=== PATIENT | female | born 1975 | race Caucasian/White ===

== ENCOUNTER 2018-06-16 19:41 | Emergency (ER) | payer OTHER ==
[2018-06-16 19:54] VITALS: BP 105/55
[2018-06-16 20:07] LABS: BILIRUBIN,URINE NEGATIVE (NEGATIVE); GLUCOSE, URINE (UA) NEGATIVE (NEGATIVE); KETONES,URINE (UA) NEGATIVE (NEGATIVE); LEUKOCYTE ESTERASE, URINE MODERATE (NEGATIVE); NITRITE,URINE NEGATIVE (NEGATIVE); OCCULT BLOOD,URINE LARGE (NEGATIVE); PH,URINE 5.5 PH (5.0-7.5); PROTEIN,URINE 100 mg/dL (NEGATIVE); UROBILINOGEN,URINE 0.2 (NORMAL) E.U./dL (NORMAL)
[2018-06-16 20:09] LABS: CLARITY,URINE CLOUDY (CLEAR)
[2018-06-16 20:22] LABS: BACTERIA,URINE Many /HPF (None Seen); RBC,URINE TNTC /HPF (0-5); SQUAMOUS EPITHELIAL CELL,UR FEW Squamous (<= Few)
[2018-06-16] MEDS ORDERED: PHENAZOPYRIDINE 100 MG TABLET PO STA (20:28)
[2018-06-16] MEDS ORDERED: cephALEXin 250 MG CAPSULE PO STA (20:28)
--- NOTE | 2018-06-16 20:30 | ED Physician Documentation ---
PD HPI FEMALE - Stated complaint Stated Complaint: FEM - Chief complaint Chief Complaint: UTI - History obtained from History obtained from: Patient - History of Present Illness Timing - onset: How many days ago (2) Timing - duration: Days (2) Timing - details: Gradual onset Pain level max: 3 Pain level max: 3 Severity Comments: mild Associated symptoms: Dysuria, Urinary frequency Contributing factors: No: , control, Oral contraceptive, Depo Review of Systems Ten Systems: 10 systems reviewed and negative Constitutional: reports: Reviewed and negative Eyes: reports: Reviewed and negative Ears: reports: Reviewed and negative Nose: reports: Reviewed and negative Throat: reports: Reviewed and negative Cardiac: reports: Reviewed and negative Respiratory: reports: Reviewed and negative GI: reports: Reviewed and negative : reports: Reviewed and negative Skin: reports: Reviewed and negative Musculoskeletal: reports: Reviewed and negative Neurologic: reports: Reviewed and negative Psychiatric: reports: Reviewed and negative Endocrine: reports: Reviewed and negative Immunocompromised: reports: Reviewed and negative PD PAST MEDICAL HISTORY - Past Medical History Past Medical History: Yes Cardiovascular: None Respiratory: None Neuro: None Endocrine/Autoimmune: Type 2 diabetes CYBER SECURITY ENGINEER: Fibroids, Other : Other HEENT: None Psych: None Musculoskeletal: None Derm: None Other Past Medical History: polycystic ovarian syndrome - Past Surgical History Past Surgical History: No Other past surgical history: Reviewed and not pertinent - Present Medications Home Medications: Ambulatory Orders Medication Instructions Recorded Confirmed Cephalexin [Keflex] 500 mg PO BID #20 capsule 06/16/18 Lisinopril 0 mg PO DAILY 06/16/18 06/16/18 Phenazopyridine HCl [Pyridium] 200 mg PO TID PRN #6 tablet 06/16/18 Sitagliptin Phos/Metformin HCl 1 tab PO BID 06/16/18 06/16/18 [Janumet 50-1,000 mg Tablet] buPROPion [Wellbutrin Xl] 150 mg PO BID 06/16/18 06/16/18 clonazePAM [KlonoPIN] 1 tab PO BID 06/16/18 06/16/18 - Allergies Allergies/Adverse Reactions: Allergies Allergy/AdvReac Type Severity Reaction Status Date / Time No Known Drug Allergies Allergy Verified 06/16/18 19:48 - Living Situation Living Situation: reports: Alone Living Arrangement: reports: At home - Social History Does the pt smoke?: No Smoking Status: Former smoker Does the pt drink ETOH?: Yes ETOH Use: Liquor Does the pt have substance abuse?: No - Family History Family history: reports: Other (Reviewed and not pertinent) - Immunizations Immunizations are current?: Yes - POLST Patient has POLST: No PD ED PE NORMAL - Vitals Vital signs reviewed: Yes - General General: Alert and oriented X 3, No acute distress - HEENT HEENT: PERRL - Neck Neck: Supple, no meningeal sign - Cardiac Cardiac: RRR, No murmur - Respiratory Respiratory: Clear bilaterally - Abdomen Abdomen: Normal bowel sounds, Soft, Non tender, Non distended - Derm Derm: Warm and dry - Extremities Extremities: No deformity - Neuro Neuro: Alert and oriented X 3 - Psych Psych: Normal mood, Normal affect Results - Vitals Vitals: Vital Signs - 24 hr 06/16/18 19:43 Temperature 36.7 C Heart Rate 94 Respiratory 16 Rate Blood Pressure 105/55 L O2 Saturation 99 Oxygen O2 Source Room air - Labs Labs: Laboratory Tests 06/16/18 20:00 Urine Color YELLOW Urine Clarity CLOUDY Urine pH 5.5 Ur Specific [place] 1.020 Urine Protein 100 H Urine Glucose (UA) NEGATIVE Urine Ketones NEGATIVE Urine Occult Blood LARGE H Urine Nitrite NEGATIVE Urine Bilirubin NEGATIVE Urine Urobilinogen 0.2 (NORMAL) Ur Leukocyte Esterase MODERATE H Urine RBC TNTC H Urine WBC >25 H Ur Squamous Epith Cells FEW Squamous Urine Bacteria Many H Ur Microscopic Review INDICATED Urine Culture Comments INDICATED PD MEDICAL DECISION MAKING - ED course Complexity details: reviewed results, re-evaluated patient, considered differential, d/w patient, d/w family ED course: 42-year-old female with dysuria. Urinalysis consistent with infection. Patient treated with Keflex and discharged on same. Given Pyridium for symptomatic treatment. Primary care follow-up. Departure - Departure Disposition: 01 Home, Self Care Clinical Impression: Cystitis Urinary tract infection Qualifiers: Urinary tract infection type: acute cystitis Hematuria presence: with hematuria Qualified Code(s): N30.01 - Acute cystitis with hematuria Condition: Good Instructions: ED UTI Cystitis Female Follow-Up: Keatno Camilo ARNP [Primary Care Provider] - Prescriptions: Cephalexin [Keflex] 500 mg PO BID #20 capsule Phenazopyridine HCl [Pyridium] 200 mg PO TID PRN #6 tablet PRN Reason: dysuria Comments: Follow-up with PCP to ensure resolution of symptoms. Return with worsening symptoms. Take antibiotics as prescribed.
== END 2018-06-16 20:37 | disposition home or self-care (01) ==
LOC: ED 19:41
DX: N30.01 Acute cystitis with hematuria (principal); E11.9 Type 2 diabetes mellitus without complications
CPT/HCPCS: 81001; 87086; 87181; 99283; A9270; 81003

== ENCOUNTER 2018-07-18 15:52 | Emergency (ER) | payer OTHER ==
--- NOTE | 2018-07-18 17:25 | ED Physician Documentation ---
History of Present Illness - Stated complaint Stated Complaint: ANXIETY - Chief complaint Chief Complaint: MHE - History obtained from History obtained from: Patient - History of Present Illness Timing: How many days ago (several) Pain level max: 0 Pain level now: 0 - Additonal information Additional information: 42-year-old female presents the emergency department with a complaint of fingers turning blue over the past few days. No numbness or tingling. Nothing makes it better or worse. She also states she is having increased anxiety. Is currently on clonazepam twice a day. Is not having any shortness of breath or chest pain. Review of Systems Constitutional: denies: Fever, Chills Respiratory: denies: Cough GI: denies: Nausea, Vomiting, Diarrhea Skin: denies: Rash Musculoskeletal: denies: Neck pain, Back pain Neurologic: denies: Headache Psychiatric: reports: Anxiety. denies: Depressed, Suicidal, Homicidal, Hallucinations, Delusions PD PAST MEDICAL HISTORY - Past Medical History Cardiovascular: None Respiratory: None Neuro: None Endocrine/Autoimmune: Type 2 diabetes LYRIC WRITER: Fibroids, Other : Other HEENT: None Psych: None Musculoskeletal: None Derm: None - Past Surgical History Past Surgical History: No - Present Medications Home Medications: Ambulatory Orders Medication Instructions Recorded Confirmed Cephalexin [Keflex] 500 mg PO BID #20 capsule 06/16/18 Lisinopril 0 mg PO DAILY 06/16/18 06/16/18 Phenazopyridine HCl [Pyridium] 200 mg PO TID PRN #6 tablet 06/16/18 Sitagliptin Phos/Metformin HCl 1 tab PO BID 06/16/18 06/16/18 [Janumet 50-1,000 mg Tablet] buPROPion [Wellbutrin Xl] 150 mg PO BID 06/16/18 06/16/18 clonazePAM [KlonoPIN] 1 tab PO BID 06/16/18 06/16/18 - Allergies Allergies/Adverse Reactions: Allergies Allergy/AdvReac Type Severity Reaction Status Date / Time No Known Drug Allergies Allergy Verified 07/18/18 15:59 - Social History Does the pt smoke?: No Smoking Status: Former smoker Does the pt drink ETOH?: Yes Does the pt have substance abuse?: No - Immunizations Immunizations are current?: Yes - POLST Patient has POLST: No PD ED PE NORMAL - Vitals Vital signs reviewed: Yes - General General: Alert and oriented X 3, No acute distress - HEENT HEENT: Moist mucous membranes - Neck Neck: Supple, no meningeal sign - Cardiac Cardiac: RRR, Strong equal pulses - Respiratory Respiratory: No respiratory distress, Clear bilaterally - Abdomen Abdomen: Soft, Non tender, Non distended - Derm Derm: Warm and dry - Extremities Extremities: Other (Bilateral hands have a bluish tint to the fingers, nailbeds are pink with brisk cap refill. Otherwise normal exam) - Neuro Neuro: Alert and oriented X 3 - Psych Psych: Other (Appears anxious, tearful at times) Results - Vitals Vitals: Vital Signs - 24 hr 07/18/18 15:59 Temperature 36.6 C Heart Rate 100 Respiratory 16 Rate Blood Pressure 122/68 O2 Saturation 98 Oxygen O2 Source Room air PD MEDICAL DECISION MAKING - ED course Complexity details: considered differential, d/w patient, d/w health care consultant ED course: 42-year-old female presents to the emergency department with a dye on her hands. this was removed with alcohol swabs.. No residual blue tint to the hands. She is also having anxiety and social work was consulted. We will have her continue her medications and follow-up with her doctor for medication adjustments. Patient counseled regarding signs and symptoms for which I believe and urgent re-evaluation would be necessary. Patient with good understanding of and agreement to plan and is comfortable going home at this time This document was made in part using voice recognition software. While efforts are made to proofread this document, sound alike and grammatical errors may occur. Departure - Departure Disposition: 01 Home, Self Care Clinical Impression: Anxiety, Contact with dyes Condition: Good Instructions: ED Panic Attack Follow-Up: Keaton Camilo ARNP [Primary Care Provider] - Within 1 week Comments: Follow-up with your doctor next week to discuss changes to your medication. Return if you worsen.
[2018-07-18 18:56] VITALS: BP 120/79
== END 2018-07-18 18:57 | disposition home or self-care (01) ==
LOC: ED 15:52
DX: F41.9 Anxiety disorder, unspecified (principal); R23.8 Other skin changes; E11.9 Type 2 diabetes mellitus without complications; Z87.891 Personal history of nicotine dependence
CPT/HCPCS: 99281; 99283

== ENCOUNTER 2019-10-30 13:50 | Outpatient (CLI) | payer OTHER ==
--- NOTE | 2019-10-30 16:27 | XRAY Report ---
PROCEDURE: Toe(s) LT INDICATIONS: CONTUSION OF LT GREAT TOE W/DAMAGE TECHNIQUE: 3 views of the first toe(s) acquired. COMPARISON: None FINDINGS: Bones: Linear lucency is present overlying the sesamoid bone at the first distal metatarsal. No suspi cious bony lesions. Soft tissues: No suspicious soft tissue densities. IMPRESSION: Sesamoid lucency overlying the first metatarsal is present. This can represent a bipartite sesamoid. However, fracture cannot be excluded as no priors are available for comparison. Recommend correlation with point tenderness and short interval imaging follow-up as indicated. Reviewed by: Sushma Garcia MD on 10/30/2019 4:26 PM PDT Approved by: Sushma Garcia MD on 10/30/2019 4:26 PM PDT Station ID: [id number]
== END 2019-10-30 13:51 | disposition home or self-care (01) ==
LOC: DI 13:50
PROVIDERS: ATTEND Nurse Practitioner Family
DX: R93.6 Abnormal findings on diagnostic imaging of limbs (principal)
CPT/HCPCS: 73660

== ENCOUNTER 2019-12-01 08:00 | Outpatient (CLI) | payer OTHER | END 2019-12-01 23:59 | disposition home or self-care (01) | LOC: LAB.WCP 08:00 | PROVIDERS: ATTEND Physician Assistant Medical | DX: N89.9 Noninflammatory disorder of vagina, unspecified (principal) | CPT/HCPCS: 81599; 87070; 87255 ==

== ENCOUNTER 2024-01-21 12:57 | Outpatient (CLI) | payer MEDICAID ==
--- NOTE | 2024-01-21 13:48 | Sleep Patient Instructions ---
Sleep Center Visit Summary - Patient Visit Information Reason for Visit: Initial consultation - Patient Instructions Additional Instructions: You will continue with CPAP therapy with pressure set at 4 cmH2O. You will be completing a sleep study, either an in-lab polysomnography (PSG) or home sleep study (HST). You will follow-up in the sleep care office after the sleep study is completed to hear the results and talk about therapy, if needed. We encourage you to continue to try to lose weight. Please follow up with the sleep care office after sleep study. - Clinic Information Contact: [facility] [address] [place] [address] [email or web address] T: [phone]
[2024-01-21 13:56] VITALS: BP 122/88; O2SAT 99
--- NOTE | 2024-01-21 13:56 | SLEEP CARE CONSULTATION ---
Information from patient questionnaire entered by Nidhi Ireland. I have reviewed and concur with the information entered by Nidhi Ireland. This document represents the service I personally performed and the decisions made by me, Jennie Tolliver ARNP. History of Present Illness Service Date and Time: 01/21/2024 1257 Reason for Visit: New patient, Previously diagnosed sleep apnea, sleep apnea on CPAP therapy Accompanied by: Spouse (Marcus) Chief Complaint: reports: Unrefreshed sleep, Excessive daytime sleepiness, Fatigue, Other (Update supplies) Date of Onset: 20 + years Usual bedtime: 10:30 PM Time it takes to fall asleep: 10 - 45 mins Snores at night: Yes Observed to quit breathing while asleep: Yes Sleeps alone due to snoring: Yes Number of times waking at night: 2 or 3 times Reasons for waking at night: reports: Pain, Bathroom, Other (Noise) Toss, Turn, or Twitch while sleeping: Yes Recalls having dreams: Yes Usually gets out of bed at: 8:00 AM Feels refreshed in the morning: No Morning headache: No Sleepy or fatigued during the day: Yes Ever fallen asleep while driving: No Takes day naps: Yes Dreams during day naps: Yes Prior sleep studies: Yes Year and Where: 2011 or 2012 [place] Additional HPI information: MICHEAL RANDLE was previously diagnosed to have unknown, AHI unknown, obstructive sleep apnea-hypopnea syndrome and comes in today with spouse to establish care for CPAP therapy. Her sleep study was in 2011 or 2012 in [place] as she does not have a copy of the sleep study with her today. She is unsure of the severity of her sleep apnea. - Parasomnia Symptoms Ever been unable to move upon waking from sleep: No Walks in sleep: Yes Talks in sleep: Yes Ever acted out dreams in sleep: Yes Ever felt weak in the knees when startled or emotional: Yes Bothered by creepy, crawly, restless sensations in legs: Yes Problems with memory or concentration: Yes CPAP Compliance Data - Data Reviewed with Patient Average duration of nightly device use: 10 hours 21 minutes Compliance rate %: 100 (daily since got machine) Current pressure setting (cmH2O): 4 Average residual AHI: 0.4 Central apnea: 0 Obstructive apnea: 0.1 Hypopnea: 0.2 Average large leak: 2 L/min Compliance data discussion: She has a Resmed Airsense 10 that she bought online. She did not adjust the settings for the pressure. She is using a full face mask. She has been obtaining her supplies online. Subjective Patient concerns: reports: mask discomfort, air blowing in eyes, mask leak noise. denies: aerophagia, condensation in mask/hose, nasal congestion, dry mouth, nose, throat, epistaxis Observed to snore while using device: No Current pressure setting perceived as: comfortable On therapy, patient: reports: sleeping better, awakening more refreshed, being more awake and alert during the day, more rested overall. denies: drowsiness while driving Initial [place] Sleepiness Scale score: 5 (01/21/24) Past Medical History Past Medical History: reports: Hypertension, Dysphagia, Diabetes, Insulin resistance, Fibromyalgia, Anxiety, Asthma, Depression, Mood disorder, Attention deficit, Other (Renita Danlus with joint hypermobility, PCOS, ADHD, sleep apnea; binocular vision syndrome) Social History The patient's occupation is not employed. Patient is and lives in [place]. Patient is not employed. Have you smoked in the past 12 months: No (weed only) Cigarettes per day (20/pack): 20 Years of smokin Quit date: 20 years ago Smoking Pack Years: 3.0 Alcohol use: No Caffeine use: Yes Caffeine amount and frequency: 2 x 12 ounce daily Family History Family history of sleep disordered breathing: No Allergies and Home Medications Known drug allergies: No Drug allergies reviewed: Yes Home medication list reviewed: Yes (as listed in EMR) Allergy and home medication list: Allergies No Known Drug Allergies Allergy Home Medications Medication Instructions Recorded Confirmed Last Taken Type lisinopriL [Lisinopril] 0 mg PO DAILY 06/16/18 01/21/24 Unknown History Buspar See Rx Instructions .ROUTE .COMPLEX 01/21/24 01/21/24 Unknown History Glipizide See Rx Instructions .ROUTE .COMPLEX 01/21/24 01/21/24 Unknown History Propranolol See Rx Instructions .ROUTE .COMPLEX 01/21/24 01/21/24 Unknown History Victoza 2-Baljinder See Rx Instructions .ROUTE .COMPLEX 01/21/24 01/21/24 Unknown History Review of Systems Weight loss over past 5 years: 60 over last 2 years Cardiovascular: reports: high blood pressure, palpitations Respiratory: reports: shortness of breath, wheeze, chronic cough Gastrointestinal: reports: heartburn, difficulty swallowing, nausea, vomitting, diarrhea Urinary: reports: frequency, urgency Neurological: reports: headaches Psychiatric: reports: Attention Deficit Hyperactivity, anxiety, depression Ear/Nose/Throat: reports: nasal congestion, sinus problems, hoarseness, wisdom teeth removed. denies: tonsillectomy Endocrine: reports: sluggishness (/tired), too hot or cold, excessive thirst, increased appetite, increased urination Immunologic: reports: sneezing (/runny nose), itching, allergies to food or environment Physical Exam Vital signs obtained and entered by: Jennie Mckinney NP Blood Pressure: 122/88 Cuff size: long (left arm, manual) Heart Rate: 85 O2 Saturation: 99 Height: 5 ft 6 in Weight: 273 lb 3.2 oz Body Mass Index: 44.1 BMI Classification: Morbidly Obese Neck circumference: 17.5 Mouth and throat: narrow oropharynx Soft palate: long Hard palate: normal Uvula: normal Uvula visualization: 0% Mallampati Class IV Tongue: enlarged in size with teeth valverde on lateral edges Tonsils: 1+ Neck: normal w/o lymphadenopathy or thyromegaly Heart: regular rate and rhythm Lungs: clear bilaterally Impression and Plan 1. Obstructive Sleep Apnea-Hypopnea Syndrome, unknown, with good treatment compliance and good apnea control. On CPAP therapy, the patient has better sleep quality and is more rested overall. Her headgear is worn out and so she gets some leaking because she is unable to secure the mask. She purchased a CPAP on hers quit working. She uses it faithfully and even uses it for all naps. When her last machine stopped working she had a very difficult couple of nights that she could not sleep without it. She said in the last 2 years she has lost 60 pounds. She no longer has a DME supplier. Since we do not have a copy of her last sleep study and she has lost significant weight in the last 2 years. I would like to have her complete a sleep study to find a new baseline for her sleep apnea. She voiced understanding and agreement with this plan. Patient's apnea severity and rationale for treatment to reduce apnea, improve sleep quality and reduce cardiovascular and cerebrovascular events was reviewed. I also reviewed the benefit of consistent device use of CPAP for hypertension, diabetes, depression/anxiety, mood disorder, attention deficit and insulin resistance. 2. Obesity, unspecified. Currently patients BMI is 44.1. Obesity increases the risk of apnea, CPAP pressure requirements and overall health risks especially cardiovascular and diabetes. Thus patient is advised to continue to try to lose weight. * Continue CPAP pressure at 4 cmH2O * Verifying PSG for diagnosis and severity * Notify me if snoring with mask or feeling that the pressure is too much or too little * Continue to try to lose weight * Call this office if any problems using CPAP * Return for follow up after sleep study, or sooner if concerns arise Counseling Topics: Weight loss health impact Plan: PSG and followup Visit Type: In Office Time Spent with Patient (minutes): 38 Provider Statement: I spent 100% of the Face to Face Visit with the patient with greater than 50% spent counseling the patient and coordination of care.
== END 2024-01-21 12:58 | disposition home or self-care (01) ==
LOC: SC 12:57
PROVIDERS: ATTEND Nurse Practitioner Family
DX: G47.33 Obstructive sleep apnea (adult) (pediatric) (principal); E66.01 Morbid (severe) obesity due to excess calories; Z68.41 Body mass index [BMI] 40.0-44.9, adult
CPT/HCPCS: 99203; 99212

== ENCOUNTER 2024-01-29 12:31 | Outpatient (CLI) | payer MEDICAID | END 2024-01-29 12:32 | disposition home or self-care (01) | LOC: SC 12:31 | PROVIDERS: ATTEND Nurse Practitioner Family | DX: G47.33 Obstructive sleep apnea (adult) (pediatric) (principal); R09.02 Hypoxemia | CPT/HCPCS: 95806 ==